=== PATIENT | male | born 1985 | race Hispanic/Latino ===

== ENCOUNTER 2018-03-22 04:01 | Emergency (ER) | payer OTHER ==
[2018-03-22] MEDS ORDERED: LIDOCAINE HCL MPF 1% 5ML VIAL ONE (04:29)
[2018-03-22] MEDS ORDERED: CEFTRIAXONE SODIUM 1 GM ONE (04:29)
[2018-03-22] MEDS ORDERED: TETANUS/DIPHTHERIA TOXOID [ADULT] 0.5 ML VIAL IM ONE (04:30)
[2018-03-22] MEDS ORDERED: ACETAMINOPHEN 325 MG TAB ONE (04:37)
== END 2018-03-22 05:59 | disposition home or self-care (01) ==
LOC: EDH 04:01
DX: S30.812A Abrasion of penis, initial encounter (principal); S30.810A Abrasion of lower back and pelvis, initial encounter; S80.812A Abrasion, left lower leg, initial encounter; Z72.0 Tobacco use; W54.0XXA Bitten by dog, initial encounter; Y93.89 Activity, other specified; Y92.89 Other specified places as the place of occurrence of the external cause; Y99.8 Other external cause status
CPT/HCPCS: 90471; 90714; 96372; 99284; J0696; J3490